=== PATIENT | male | born 1950 | race Caucasian/White ===

== ENCOUNTER → 2018-06-07 | Outpatient (CLI) | payer MEDICARE | LOC: M.RAD 09:36 | DX: M19.042 Primary osteoarthritis, left hand (principal); M25.842 Other specified joint disorders, left hand; G89.29 Other chronic pain; M24.80 Other specific joint derangements of unspecified joint, not elsewhere classified; M79.5 Residual foreign body in soft tissue ==

== ENCOUNTER 2021-01-01 12:09 | Emergency (ER) | payer MEDICARE ==
[~2021-01-01] VITALS: Ht 177.8 cm; Wt 81.7 kg
[2021-01-01] MEDS ORDERED: NORVASC 2.5 MG2.5 MG PO (12:24)
[2021-01-01 14:55] LABS: ABSOLUTE BASOPHILS 0.1 thou/uL (0.0-0.2); ABSOLUTE EOSINOPHILS 0.1 thou/uL (0.0-0.7); ABSOLUTE LYMPHOCYTES 2.3 thou/uL (0.8-5.3); ABSOLUTE MONOCYTES 0.6 thou/uL (0.0-1.2); ABSOLUTE NEUTROPHILS 3.8 thou/uL (1.6-8.1); BASOPHILS 0.8 %; EOSINOPHILS 1.3 %; HEMATOCRIT 43.3 % (42.0-52.0); HEMOGLOBIN 14.9 gm/dL (14.0-18.0); LYMPHOCYTES 33.4 %; MCH 32.2 pg (26.0-34.0); MCHC 34.4 g/dL (28.0-37.0); MCV 93.5 fL (80.0-100.0); MONOCYTES 9.3 %; MPV 6.9 fl. (7.2-11.1); NUCLEATED RBCS 0 /100WBC; PLATELET COUNT* 304 thou/uL (150-400); POLYS 55.2 %; RBC 4.63 mil/uL (4.50-6.00); WBC 6.9 thou/uL (4.0-11.0)
[2021-01-01 15:06] LABS: CALCIUM 9.7 mg/dL (8.5-10.1); CREATININE 0.9 mg/dL (0.6-1.3)
[2021-01-01] MEDS ORDERED: CEPHALEXIN500 MG PO (15:54)
[2021-01-01 16:00] LABS: ESR (SEDRATE) 43 mm/hr (0-20)
[2021-01-01 16:11] VITALS: BP 144/88
== END 2021-01-01 16:10 | disposition left against medical advice (07) ==
LOC: M.ERS 12:09
PROVIDERS: Physician Assistant
DX: L03.011 Cellulitis of right finger (principal); L02.511 Cutaneous abscess of right hand; I10 Essential (primary) hypertension; K21.9 Gastro-esophageal reflux disease without esophagitis; Z88.6 Allergy status to analgesic agent

== ENCOUNTER → 2021-09-05 | Outpatient (CLI) | payer MEDICARE ==
[~2021-09-05] MED LIST: CEPHALEXIN500 MG PO; NORVASC 2.5 MG2.5 MG PO
--- NOTE | 2021-09-05 18:44 | CARDNUC ---
[place] [address] CARDIAC NUCLEAR IMAGING REPORT Name: DIMITRIOS JAIMES Room: [facility]#: [id number] Admission: 09/05/21 Attend Phys: nAu Pritchard, Discharge: Date of : 54 Date of Service: 09/05/21 1844 Report #: [id number] THIS REPORT FOR: cc: Pauline Christianson. Pauline Deshpande. Jesus Ledesma MD [facility] ~ APPROVED REPORT Imaging Protocol: Stress Tc-99m/Rest Tc-99m 1 day Study performed: 09/05/2021 09:06:34 Indication: Elevated cardiac calcium score Patient Location: Out-Patient Stress Nurse: CHEN Franco Tech:BRAULIO Licea Ht: 5 ft 10 in Wt: 180 lbs BSA: 2.00 m2 BMI: 25.82 Medical History Medical History: HTN, Hyperlipidemia, No history of CAD, elevated cardiac calcium score, Stroke/TIA. Medications: Simvastatin, Amlodipine, Fish Oil Allergies: Naproxen, ASA, Ibuprofen Cardiac Risk Factors: Age, HTN, Hyperlipidemia, elevated cardiac calcium score. Previous Cardiac Procedures: None Pretest Chest Pain Characteristics: No chest pain Exercise History: Physically active Physical Disabilities: None noted Meds Held (24 hrs): Unknown Resting Data Rest SPECT myocardial perfusion imaging was performed in supine position 30 minutes following the intravenous injection of 10.3 mCi of Tc-99m Sestamibi. Time of rest injection: 08:00 The images were gated to evaluate regional wall motion and calculate left ventricular ejection fraction. Administration Route: IV Administration Site: Right AC Pharmacologic Stress Pharmacologic stress test was performed by injecting Regadenoson 0.4 [place] [address] CARDIAC NUCLEAR IMAGING REPORT Name: DIMITRIOS JAIMES Room: [facility]#: [id number] Admission: 09/05/21 Attend Phys: Anu Pritchard, Discharge: Date of : 54 Date of Service: 09/05/21 1844 Report #: [id number] mg IV push over 10-15 seconds immediately followed by the intravenous injection of 33.6 mCi of Tc-99m Sestamibi. Time of stress injection: 09:20 Administration Route: IV Administration Site: Right AC Heart Rate at time of stress injection: 135 bpm. Gated Stress SPECT was performed 30 minutes after stress injection. The images were gated to evaluate regional wall motion and calculate left ventricular ejection fraction. Prone imaging was performed. Stress Test Details Stress Test: Exercise stress testing was performed using a Florencio protocol. HR Max Heart Rate (APMHR): 151 bpm Resting HR: 72 bpm Target HR (85% APMHR): 128 bpm Max HR Achieved: 164 bpm % of APMHR: 108 Recovery HR: 97 bpm HR response to stress: Normal HR response to stress BP Resting BP: 150/91 mmHg Max BP: 192/111 mmHg Recovery BP: 144/92 mmHg BP response to stress: Normal blood pressure response to stress. ECG Resting ECG: Sinus Rhythm, LBBB Stress ECG: Sinus tachycardia, LBBB ST Change: None Arrhythmia: None Recovery ECG: Sinus Rhythm, LBBB Recovery ST Change: None Recovery Arrhythmia: None Clinical Reason for Termination: Completed protocol, Maximal effort, Patient Request Stress Symptoms: Dyspnea Exercise duration: 11 min 26 sec Exercise capacity: 13.48 METs Overall Exercise Capacity for Age: Superior The patient exhibited good exercise tolerance. [place] [address] CARDIAC NUCLEAR IMAGING REPORT Name: DIMITRIOS JAIMES Room: [facility]#: [id number] Admission: 09/05/21 Attend Phys: Anu Pritchard, Discharge: Date of : 54 Date of Service: 09/05/21 1844 Report #: [id number] cardiac symptoms with standard Florencio protocol exercise. Nurse Comments Patient tolerated Nuclear Treadmill Stress test to Stage 4. Patient was stable and stated he felt good when escorted to Nuclear Medicine for imaging. Exercise capacity - Superior. Stress ECG Conclusion The baseline twelve-lead EKG shows sinus rhythm with left bundle branch block. EKGs obtained during and post exercise show sinus rhythm and sinus tachycardia with left bundle branch block. There were no significant EKG changes when compared to baseline. There were no stress-induced arrhythmias. Study Quality Study: Good Artifact: Mild Diaphragmatic artifact Study Data At rest, the left ventricular ejection fraction was 61%.. Post stress, the left ventricular ejection was 57%.. TID = 0.88. Perfusion Perfusion studies obtained in the supine position at rest and post exercise stress show mild photopenia in the inferior wall that resolves with post-rest prone imaging consistent with diaphragmatic attenuation artifact. No other significant fixed or reversible defects are identified. Wall Motion Global LV systolic function is preserved. There is a septal wall motion abnormality consistent with underlying bundle branch block. Nuclear Conclusion ECG Findings: non-diagnostic Clinical Findings: negative for ischemia Nuclear Findings: negative for ischemia Exercise Capacity: normal Left Ventricular Function: Preserved Risk Study: low Perfusion images show no defect to suggest infarct or ischemia. Left ventricular systolic function is well preserved on gated studies. [place] [address] CARDIAC NUCLEAR IMAGING REPORT Name: DIMITRIOS JAIMES Room: [facility]#: [id number] Admission: 09/05/21 Attend Phys: Anu Pritchard, Discharge: Date of : 54 Date of Service: 09/05/21 1844 Report #: [id number] <Conclusion> The baseline twelve-lead EKG shows sinus rhythm with left bundle branch block. EKGs obtained during and post exercise show sinus rhythm and sinus tachycardia with left bundle branch block. There were no significant EKG changes when compared to baseline. There were no stress-induced arrhythmias. <ELECTRONICALLY SIGNED> By: Jesus Carter MD, FACC 09/05/[id number] Jesus Carter MD, FACC /INF
== END ==
LOC: M.NUC 08-21 09:41
PROVIDERS: ATTEND Internal Medicine
DX: R93.1 Abnormal findings on diagnostic imaging of heart and coronary circulation (principal)